=== PATIENT | male | born 1975 | race Caucasian/White ===

== ENCOUNTER 2018-03-03 09:00 | Outpatient (RCR) | payer MEDICAID, SELFPAY ==
--- NOTE | 2018-02-14 08:49 | HMH.PTOPEV ---
PT Outpatient Evaluation Rehab PT Outpatient Evaluation Start: 02/14/18 08:09 Freq: Status: Active Protocol: Document 02/14/18 08:36 PHORPERLA (Rec: 02/14/18 08:49 PHORNE [id number]) Electronically Signed By Beto Arguello, PT 02/14/18 08:36 Outpatient Therapy Subjective History Subjective History Pt is a 42 yo white male who presents with c/o right knee pain x ~ 2 wks. He states, I stepped off of the tractor and popped my knee out of place, it took me about an hour to get it back in. He reports pain is worse with walking and he has feeling that his knee is going to dislocate at times even when walking on level ground. He reports no significant PMH. Chief Complaint Pain Gives out/Unstable Symptom Type Ache Sharp Symptoms Relieved By Rest/Positioning Symptoms Aggravated By Walking Prior Functional Limitations None Current Functional Limitations Walking Stairs Symptom Description Constant but Variable Activity Dependent Level of pain today (0-10) 2 Pain scale - at its worst (0-10) 5 Hip/Knee Eval Gait Observation General Gait Pattern Observation Antalgic Gait Palpation Tenderness right Knee Palpation Finding Tenderness Knee Palpation Overall Comment medial and lateral knee jt line MMT Hip Flexion Strength Grade 5 Normal Hip Abduction Strength Grade 5 Normal Hip Adduction Strength Grade 5 Normal Hip Extension Strength Grade 5 Normal Gluteus Tommy Strength Grade 5 Normal Knee Extension Strength Grade 5 Normal Knee Flexion Strength Grade 5 Normal ROM Hip ROM Reason Not Measured Within Functional Limits Knee Flexion Active Range of Motion ( 0-120 degrees) DTR bilateral Rt Patellar 2+ Lt Patellar 2+ Rt Ankle 2+ Lt Ankle 2+ Special Tests Knee Anterior Drawer Test Negative Left Positive Right Knee Anterior [place]on Test Negative Left Positive Right Knee Valgus Stress Test Negative Left Negative Right Knee Varus Stress Test Negative Right Posi
== END 2018-03-03 09:01 | disposition home or self-care (01) ==
LOC: PT 09:00
PROVIDERS: Visit Provider Nurse Practitioner Family
DX: M25.561 Pain in right knee (principal)
CPT/HCPCS: 97010; 97014; 97016; 97110; 97140; 97163; G0283

== ENCOUNTER → 2018-03-23 09:46 | Outpatient (CLI) | payer MEDICAID, SELFPAY ==
--- NOTE | 2018-03-23 09:49 | MR_ITS ---
MR knee RT wo con Ordering Physician: Birdie Freitas Patient Age: 42 years: Male HISTORY: ITS.REASON: RIGHT KNEE PAIN, UNSPECIFIED CHRONICITY Right knee pain 3 weeks. Pain injured getting off a tractor. The medial and lateral sides of patella TECHNIQUE: Multiplanar multisequence imaging 1.5 T MR COMPARISON :No plain film for comparison FINDINGS Osseous prominence and hypertrophy at the inferior insertion and at tibial tubercle may reflect old [place] schlatter disease.. However there is also abnormal signal persists in about this area currently, with some cystic changes and some questionable erosive appearance adjacent to the inferior patellar tendon insertion upon tibial tubercle. With Increased signal also immediate posterior to this its insertion., As seen on Sagittal imaging 12.. Appears to be some inflammation as well as cystic changes within a prominent area of spurring here. Plain film correlation be helpful to determine extent of bony prominence and hypertrophy here but on MR appears to be quite generous bony component which likely contributes to the current appearance. This may question impinge upon or associated with irritation, inflammation of the patellar tendon at its inferior insertion...... Clinical correlation required is there point tenderness in this region region??. Also mild edema in adjacent aspect of Hoffa's fat pad, next to this edematous hypertrophic feature discussed above Then Also note Minimal SQ edema seen is seen overlying this region and particularly evident lateral aspect of the inferior patellar tendon with mild vascular edema tracking laterally overlying inferior aspect lateral retinaculum The more superior patellar tendon itself appears intact with only scant edema along its anterior margin The quadriceps tendon is intact. Actually we do see individual bands within this tendon, with upper normal signal at its medial insertion. Patellofemoral Joint,: normal relationships. Paranasal posterior patella seems to be intact. Small joint effusion suprapatella bursa. The medial and lateral meniscus appear intact. The medial and lateral compartment are intact with cartilage well-maintained. The ACL and PCL are intact. The MCL and lateral collateral ligaments intact.q. IMPRESSION.............. 1. Prominent bony hypertrophy is seen region of tibial tubercle & about the insertion of the patellar tendon. This likely in part reflects old [place] Schlatter Disease... But there may be some additional osseous proliferation here. With this there is abnormal signal throughout this region involving both the posterior margin of the patellar tendon ; as well as within the adjacent hypertrophic bone & at the tibial tubercle itself.... Appear to be edema, inflammation & reactive bone changes along with cystic changes within the bone. Also mild edema in adjacent soft tissues & Hoffa's fat pad ... Clinical correlation & Plain film correlation required here.. No plain films available . Recommend orthopedic follow-up to further evaluate 2. There is mild subcutaneous edema overlying patella tendon -this most evident inferiorly near patellar insertion.. This SQ edema does extend somewhat laterally, slightly overlying the lateral retinaculum, Mediport 3. Small joint effusion 4.. Remainder the knee appears satisfactory Medial and lateral meniscus intact. Cruciate ligaments intact.
== END ==
PROVIDERS: Visit Provider Nurse Practitioner Family
DX: M25.561 Pain in right knee (principal)
CPT/HCPCS: 73721

== ENCOUNTER → 2018-04-28 09:36 | Outpatient (CLI) | payer MEDICAID, SELFPAY ==
--- NOTE | 2018-04-28 09:39 | XR_ITS ---
XR knee RT 4V Ordering Physician: Catrachito Cabello MD Patient Age: 42 years: Male HISTORY: ITS.REASON: weightbearing. Knee pain. Swelling. TECHNIQUE: 3 views right knee weightbearing [place] view, weightbearing [place], AP and lateral view right knee COMPARISON : 03/23/2018 MRI right knee. FINDINGS We again see the prominent/exuberant osseous hypertrophy and irregularity from region of tibial tubercle most compatible with old [place] Schlatter Disease. Soft tissue swelling overlying this region associated. This includes generous typical stippled calcification tibial tubercle. However in addition along the superior margin of this region there is a dominant large osseous protuberance/exostosis like appearing area measuring nearly 17 mm length overall.- It Extending anteriorly, superiorly and on previous MRIs was seen compression upon the the posterior margin of the inferior patellar tendon.. Also This entire hypertrophic process had diffuse increased bone signal on recent MR reflecting reactive bone changes throughout this region. There are some subtle lucent cystic changes seen along its anterior margin on plain film [place] view versus the normal patellofemoral relationships however again the hypertrophic changes related to the tibial tubercle or can be seen on the sunrise view is well projected over the patella on this projection. No joint effusion evident patella otherwise appears satisfactory on plain film but the medial and lateral compartment are well-maintained. IMPRESSION: ------- 1. 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 Associated soft tissue swelling overlying this osseous prominence 2. No joint effusion. The medial &, lateral compartment appear satisfactory.
== END ==
PROVIDERS: PCP Nurse Practitioner Family; Visit Provider Orthopaedic Surgery
DX: M25.561 Pain in right knee (principal)
CPT/HCPCS: 73564

== ENCOUNTER → 2020-07-03 11:12 | Outpatient (CLI) | payer BC, SELFPAY ==
[2020-07-04 16:47] LABS: Covid-19 Nasal PCR Sendout Lex Positive
== END ==
PROVIDERS: PCP Nurse Practitioner Family; Visit Provider Nurse Practitioner Family
DX: Z20.828 Contact with and (suspected) exposure to other viral communicable diseases (principal); U07.1 COVID-19; R50.9 Fever, unspecified; R05 Cough
CPT/HCPCS: U0004